=== PATIENT | male | born 1930 | race Caucasian/White ===

== ENCOUNTER 2016-11-22 09:35 | Emergency (ER) | payer MEDICARE ==
--- NOTE | 2016-11-22 10:13 | ERNOTE ---
Medical Problem HPI - General Chief Complaint: General Assessment Time Seen by Provider: 11/22/16 09:53 Source: patient Exam Limitations: no limitations - Immun/Allergies/Home Medications Immunizations: IMMUNIZATION HX Immunizations Up to Date No History of Influenza Vaccine No Hx Pneumococcal Vaccination No Allergies/Adverse Reactions: Allergies codeine [Codeine] Allergy (Verified 11/22/16 09:47) propoxyphene napsylate [From Darvon-N] Allergy (Verified 11/22/16 09:47) Home Medications: HOME MEDICATIONS Beta-Carotene(A) W-C , E/Min [Ocuvite] 1 tab PO DAILY 11/22/16 [Last Taken Unknown] Ciprofloxacin HCl [Cipro] 250 mg PO BID #20 tablet 11/22/16 [Last Taken Unknown] oxyCODONE HCL/ACETAMINOPHEN [Percocet 5-325 mg Tablet] 1 each PO Q4H PRN #20 tablet 11/22/16 [Last Taken Unknown] - History of Present History Narrative: Patient has had progressive joint pain for about three weeks. It started with left shoulder pain, then right. Now both shoulders, elbows, hips and knees hurt to the point where it is hard for him to get around. He denies any injury, no swelling, no other symptoms, no muscle aches. He has been extremely healthy, only had cataract surgery, does not have a PCP which is why he is coming to the ER Date (Duration): 11/04/16 Review of Systems - Review of Systems Constitutional: Absent: recent illness, fever EYE: Absent: vision changes ENT: Absent: nose congestion, sore throat Respiratory: Absent: shortness of breath Cardiology: Absent: chest pain Gastrointestinal/Abdominal: Absent: nausea, vomiting, diarrhea, abdominal pain Genitourinary: Present: no symptoms reported Musculoskeletal: Present: See HPI. Absent: back pain Skin: Absent: rash Neurological: Absent: headache, weakness, numbness Hematologic/Lymphatic: Absent: easy bruising, easy bleeding - Patient's Past Medical History Patient History - Medical: No pertinent hx Patient History - Cardiac/Respiratory: No pertinent hx Patient History - Cancer: No Hx of Cancer Patient History - Surgical Procedures: Cataracts, T & A Patient History - Other: None - Social History Living Situations: home Abuse History: No History of abuse Psych History: No pertinent hx Smoking Status: Never smoker Have you smoked in the past 12 months: No Alcohol Use: none Drug Use: none - Immunizations Immunizations Up to Date: No Hx Pneumococcal Vaccination: No History of Influenza Vaccine: No Physical Exam - Physical Exam General Appearance: Present: wd/wn, alert, no apparent distress Head Exam: Present: normal inspection Neck: Present: normal inspection, supple, full range of motion, other - mild muscle tenderness. Absent: tender posterior midline Respiratory: Present: no respiratory distress, normal breath sounds, no accessory muscle use, chest nontender, lungs clear Cardiovascular/Chest: Present: regular rate, rhythm, no murmur, normal peripheral pulses Gastrointestinal/Abdominal: Present: normal bowel sounds, nontender, nondistended Back Exam: Present: normal inspection, no CVA tenderness, no vertebral tenderness Extremity Exam: Present: normal inspection, no edema, other - no obvious abnormality on inspection of joints, no swellling, no erythema, no tenderness to palpation ,slight tenderness on ROM Neurological Exam: Present: alert, oriented, normal mood/affect, no motor/ sensory deficits Skin Exam: Present: normal color, warm/dry ED Progress - Results and Orders Patient's Lab Results:: I have reviewed the patient's lab results. - Vital Signs Patient's Vital Signs:: I have reviewed the patient's vital signs. 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 UTI (urinary tract infection) Qualifiers: Urinary tract infection type: acute cystitis Hematuria presence: without hematuria Qualified Code(s): N30.00 - Acute cystitis without hematuria Renal failure Qualifiers: Renal failure chronicity: acute Acute renal failure type: unspecified Qualified Code(s): N17.9 - Acute kidney failure, unspecified Disposition: Home self-care Condition: Good Instructions: Urinary Tract Infection, Adult, [id number] Additional Instructions: do not take any more ibuprofen, advil, or aspirin You may EITHER take tyelnol 650mg every four hours OR the prescription pain medication (percocet) you will be called later with a follow up appointment Prescriptions: Ciprofloxacin HCl [Cipro] 250 mg PO BID #20 tablet oxyCODONE HCL/ACETAMINOPHEN [Percocet 5-325 mg Tablet] 1 each PO Q4H PRN #20 tablet PRN Reason: Pain
[2016-11-22 10:25] LABS: Hematocrit 40.8 % (42.0-52.0); Hemoglobin 13.4 gm/dL (13.5-18.0); Mean Cell Volume 88.7 fl (78-100); Mean Corpuscular Hemoglobin 29.1 pg (27-31); Mean Corpuscular Hgb Conc 32.8 g/dl (32-36); Mean Platelet Volume 10.6 fl (6.0-9.5); Platelet Count 193 K/mm3 (150-450); Red Cell Distribution Width 14.5 % (11.5-14.0); White Blood Count 10.6 K/mm3 (4.0-10.5)
[2016-11-22 10:25] LABS: Urine Bilirubin Negative (NEGATIVE); Urine Ketone Negative (NEGATIVE); Urine Nitrite Negative (NEGATIVE); Urine Protein 30 mg/dL (NEGATIVE); Urine Urobilinogen Normal (NORMAL)
[2016-11-22 10:29] LABS: Total Cells Counted 100
[2016-11-22 10:36] LABS: Urine Appearance Clear; Urine Bacteria 1+; Urine Blood 5 /ul (NEGATIVE); Urine Color Yellow; Urine Hyaline Cast 0-5 /LPF; Urine RBC 0-5 /hpf (0-5)
[2016-11-22 10:37] LABS: Albumin * 3.9 gm/dl (3.4-5.0); Anion Gap 16.8 mmol/L (6.8-13.8); BUN/Creatinine Ratio 15.5 (9.0-21.6); Bilirubin, Total 0.7 mg/dL (0.0-1.1); CRP 8.4 mg/dL (0.0-0.9); Ca. Corrected For Albumin 9.3 mg/dL (8.4-10.2); Calcium * 9.5 mg/dL (7.9-10.9); Carbon Dioxide 24.5 mmol/L (24-32.6); Potassium 4.3 mmol/L (3.4-4.6); Total Protein 8.3 gm/dL (6.2-8.2)
[2016-11-22 10:52] LABS: Atypical (Reactive) Lymph 3 % (0-2); Band 6 % (0-2.0); Immature Granulocyte 1 (0-1); Lymphocyte 8 % (20-51); Monocyte 25 % (0-9); Neutrophil 57 % (42-75)
[2016-11-22 10:53] LABS: Platelet Estimate Normal (NORMAL)
[2016-11-22 10:54] LABS: RBC Morphology Normal (NORMAL)
[2016-11-22] MEDS ORDERED: CIPROFLOXACIN HCL 250 MG TABLET PO ONE (11:51)
[2016-11-22] MEDS ORDERED: oxyCODONE HCL/ACETAMINOPHEN 1 TAB TABLET PO ONE (11:51)
[2016-11-22] MEDS ORDERED: oxyCODONE HCL/ACETAMINOPHEN 1 TAB TABLET ONE (11:57)
[2016-11-22] MEDS ORDERED: CIPROFLOXACIN HCL 250 MG TABLET ONE (11:57)
[2016-11-22 12:04] VITALS: BP 153/61
== END 2016-11-22 12:11 | disposition home or self-care (01) ==
LOC: ER 09:35
DX: M02.39 Reiter's disease, multiple sites (principal); N30.00 Acute cystitis without hematuria; N17.9 Acute kidney failure, unspecified

== ENCOUNTER 2016-11-26 12:15 | Observation (INO) | payer MEDICARE ==
[2016-11-26 13:19] LABS: Hematocrit 39.2 % (42.0-52.0); Hemoglobin 13.1 gm/dL (13.5-18.0); Mean Cell Volume 87.7 fl (78-100); Mean Corpuscular Hemoglobin 29.3 pg (27-31); Mean Corpuscular Hgb Conc 33.4 g/dl (32-36); Neutrophil # 3.9 K/mm3 (1.3-6.0); Neutrophil % 37.2 % (42-75.0); Platelet Count 170 K/mm3 (150-450); Red Blood Count 4.47 M/mm3 (4.7-6.0); Red Cell Distribution Width 14.2 % (11.5-14.0); White Blood Count 10.6 K/mm3 (4.0-10.5)
[2016-11-26 13:24] LABS: Total Cells Counted 100
[2016-11-26 13:30] LABS: Albumin * 3.8 gm/dl (3.4-5.0); BUN/Creatinine Ratio 14.1 (9.0-21.6); Bilirubin, Total 0.8 mg/dL (0.0-1.1); CRP 10.3 mg/dL (0.0-0.9); Ca. Corrected For Albumin 9.4 mg/dL (8.4-10.2); Calcium * 9.6 mg/dL (7.9-10.9); Potassium 4.7 mmol/L (3.4-4.6); Total Protein 8.2 gm/dL (6.2-8.2)
[2016-11-26 13:34] LABS: Band 7 % (0-2.0); Immature Granulocyte 1 (0-1); Lymphocyte 11 % (20-51); Monocyte 34 % (0-9); Neutrophil 47 % (42-75)
[2016-11-26 13:35] LABS: Anion Gap 14.9 mmol/L (6.8-13.8); Carbon Dioxide 27.8 mmol/L (24-32.6)
[2016-11-26 13:37] LABS: Urine Bilirubin Negative (NEGATIVE); Urine Ketone Negative (NEGATIVE); Urine Nitrite Negative (NEGATIVE); Urine Protein 15 mg/dL (NEGATIVE); Urine Urobilinogen Normal (NORMAL); Urine pH 5.5 pH (5.0-7.0)
[2016-11-26 13:38] LABS: Platelet Estimate Normal (NORMAL); RBC Morphology Normal (NORMAL)
--- NOTE | 2016-11-26 13:41 | ERNOTE ---
Medical Problem HPI - General Chief Complaint: General Assessment Time Seen by Provider: 11/26/16 12:51 Source: patient, family Exam Limitations: no limitations - Immun/Allergies/Home Medications Immunizations: IMMUNIZATION HX Immunizations Up to Date No History of Influenza Vaccine No Hx Pneumococcal Vaccination No Allergies/Adverse Reactions: Allergies codeine [Codeine] Allergy (Verified 11/22/16 09:47) propoxyphene napsylate [From Darvon-N] Allergy (Verified 11/22/16 09:47) Home Medications: HOME MEDICATIONS Beta-Carotene(A) W-C , E/Min [Ocuvite] 1 tab PO DAILY 11/22/16 [Last Taken Unknown] Ciprofloxacin HCl [Cipro] 250 mg PO BID #20 tablet 11/22/16 [Last Taken Unknown] oxyCODONE HCL/ACETAMINOPHEN [Percocet 5-325 mg Tablet] 1 each PO Q4H PRN #20 tablet 11/22/16 [Last Taken Unknown] - History of Present History Narrative: Patient has been very healthy all his live with few medical visits.Over the last three weeks he has had progressive joint pain in starting in shoulders, elbows, hips and knees. He was seen in the ER four days ago, diagnosed with a UTI and started on antibiotics. He has not improved but gotten worse, the pain is not relieved with the percocet , he has increasing pain weakness, no appetite Review of Systems - Review of Systems Constitutional: Present: recent illness, malaise. Absent: fever Respiratory: Absent: shortness of breath, cough Cardiology: Absent: chest pain Gastrointestinal/Abdominal: Present: eating less. Absent: nausea, vomiting, diarrhea, abdominal pain Genitourinary: Present: frequency Musculoskeletal: Absent: back pain Neurological: Present: weakness - generalized. Absent: headache Hematologic/Lymphatic: Absent: easy bruising - Patient's Past Medical History Patient History - Medical: No pertinent hx Patient History - Cardiac/Respiratory: No pertinent hx Patient History - Cancer: No Hx of Cancer Patient History - Surgical Procedures: Cataracts, T & A Patient History - Other: None - Social History Living Situations: home Abuse History: No History of abuse Psych History: No pertinent hx Smoking Status: Never smoker Alcohol Use: none Drug Use: none - Immunizations Immunizations Up to Date: No Hx Pneumococcal Vaccination: No History of Influenza Vaccine: No Physical Exam - Physical Exam General Appearance: Present: wd/wn, alert, no apparent distress Head Exam: Present: normal inspection Ears, Nose, Throat: Present: normal pharynx Respiratory: Present: no respiratory distress, no accessory muscle use, lungs clear, decreased breath sounds Cardiovascular/Chest: Present: regular rate, rhythm, no murmur Gastrointestinal/Abdominal: Present: normal bowel sounds, nontender, nondistended Extremity Exam: Present: normal inspection, no edema, other - no obvious joint swelling, erythema shaver tenderness Neurological Exam: Present: alert, oriented, normal mood/affect Skin Exam: Present: normal color, warm/dry ED Progress - Results and Orders Patient's Lab Results:: I have reviewed the patient's lab results. - Vital Signs Patient's Vital Signs:: I have reviewed the patient's vital signs. Vital Signs: Vital Signs 11/26/16 11/26/16 12:30 12:58 Temperature 37.4 C Pulse Rate 75 83 Respiratory 17 16 Rate Blood Pressure 129/63 O2 Sat by Pulse 97 97 Oximetry - EKG EKG: nonspecific ST T wave changes - J point elevation - CT/Ultrasound CT/Ultrasound Narrative: CT head: age related changes, no acute - Progress/Reassessment Chief Complaint: General Assessment Progress Note-Subjective: 11/26/16 13:20 patient became unresponsive getting out of the bathroom, possible seizure activity initially patient was unresponsive, pale with poor respiration, clenched jaw, quickly became responsive again, breathing spontaneously alert with in a couple of minutes, denies any new symptoms 11/26/16 14:18 discussed peripheral smear with Dr Cardenas looks more like reactive process 11/26/16 14:55 discussed results with patient and family 11/26/16 15:[address] Caldwell, okay to admit for observation for syncope and uncontrolled pain add EMILY and blood culture, okay to start rocephin Departure - Departure Clinical Impression: Uncontrolled pain Syncope Qualifiers: Syncope type: unspecified Qualified Code(s): R55 - Syncope and collapse Disposition: [facility] Condition: Fair
[2016-11-26 13:48] LABS: Urine Appearance Slightly Cloudy; Urine Bacteria 1+; Urine Blood 5 /ul (NEGATIVE); Urine Coarse Granular Cast TRACE /LPF; Urine Color Yellow; Urine Hyaline Cast 0-5 /LPF
--- NOTE | 2016-11-26 14:49 | PATHPSR ---
PHYSICIAN: Linette Hager MD LAB#: [id number] SPECIMEN DATE: 11/26/2016 CLINICAL INFORMATION: The patient is an 86-year-old man seen in the emergency room 4 days previously with joint pain for 3 weeks which was felt to be reactive due to a urinary tract infection which was treated with antibiotics. The patient presents to the ER today as he has not responded to treatment and urinary tract cultures were negative The current CBC in comparison to this previous CBC shows a left shift in granulocytic series, increased monocytes. PSA is elevated to 11.93 mg/ml. A peripheral smear evaluation was ordered to evaluate the left shift and monocytosis. CBC: WBC 10.6 K/mm3, hemoglobin 13.1 gm/dl, hematocrit 39.2 %, MCV is 87.7 fl, MCH is 29.3 pg, MCHC is 33.4 g/dl, Platelet count 170,000. Manual differential: Neutrophils 47 %, bands 7 %, lymphocytes 11 %, monocytes 34 %, eosinophils 0 %, basophils 0 %, immature granulocytes 1%. RED BLOOD CELLS: Mild normocytic, normochromic anemia PLATELETS: No abnormalities WHITE BLOOD CELLS: Relative and absolute monocytosis with left shift in granulocytic series DIAGNOSIS: PERIPHERAL BLOOD SMEAR, REVIEW BY PATHOLOGIST: -ABNORMAL LEUKOCYTE COUNTS WITH LEFT SHIFT IN GRANULOCYTIC SERIES AND MONOCYTOSIS, SEE COMMENT COMMENT: The findings suggest a reactive process to inflammatory reactive changes in the patient. No definitive evidence of primary chronic or acute hematological malignancy is identified on our examination. However follow-up counts are suggested. If the monocytosis and a left shift in the granulocytic series does not resolve, further evaluation including hematological consultation and bone marrow evaluation is suggested. The findings are discussed with Dr. Hager on 11/26/2016.
[2016-11-26] MEDS ORDERED: HYDROmorphone HCL 1 MG/ML DISP.SYRIN IV ONE (15:15)
[2016-11-26] MEDS ORDERED: HYDROmorphone HCL 1 MG/ML DISP.SYRIN ONE (15:20)
[2016-11-26] MEDS ORDERED: ACETAMINOPHEN 500 MG TABLET PO PRN (15:28)
[2016-11-26] MEDS ORDERED: HYDROmorphone HCL 1 MG/ML DISP.SYRIN IV PRN (15:28)
[2016-11-26] MEDS ORDERED: ONDANSETRON HCL/PF 2 MG/ML VIAL IV PRN (15:28)
--- NOTE | 2016-11-26 17:36 | HP ---
Chief Complaint - Chief Complaint Date of Service: 11/26/16 Time of Service: 17:17 Chief Complaint: polyarticular joint pains/syncope. History of Present Illness: Braden aCmpbell, is an 86-year-old white male, with no significant previous medical history who was admitted on 11/26/2016 because of syncopal episode and polyarticular pains. The patient was relatively well until 5 days prior to admission when he was seen in our emergency room because of polyarticular pain and a urinary tract infection. At that time his ESR was 88 and his CRP was elevated at 8.4. He was started on Cipro and sent home with Percocet . His joint pains did not have any relief with his Percocet and he eventually came back today, In the emergency room, he was found to have again a urinary tract infection and an elevated PSA of 11.97, a creatinine 1.4 , potassium of 4.7, a C-reactive protein of 10.3, a WBC of 10.6 with bands of 7% . His monocytes were also elevated at 32.5. A peripheral smear was done and pathology feels that it is more of inflammatory reactive response rather than malignancy. His CK and RF were normal. When the patient went in the bathroom he had a syncopal episode. The patient was admitted for observation and further evaluation. He denies any fever or chills denies any nausea, vomiting, diarrhea , constipation, denies any dysuria put polyuria, denies any chest pain, palpitation and denies any abdominal pain. He admits to having had neck pain 2 weeks ago which then started going down to his shoulder elbows and hips and knees. He denies any sore throat, any recent trauma. - Patient's Past Medical History Patient History - Medical: No pertinent hx Patient History - Cardiac/Respiratory: No pertinent hx Patient History - Cancer: No Hx of Cancer Patient History - Surgical Procedures: Cataracts, T & A Patient History - Other: None - Family History Mother Family History - Medical: History Unknown Family History - Cardiac/Respiratory: History Unknown Family History - Cancer: Breast Father Family History - Medical: , History Unknown Family History - Cardiac/Respiratory: Cardiac Arrest, CVA/Stroke Family History - Cancer: History Unknown - Social History Living Situations: home Abuse History: No History of abuse Psych History: No pertinent hx Smoking Status: Never smoker Have you smoked in the past 12 months: No Do you dip or chew tobacco: No Alcohol Use: none Drug Use: none - Immunizations Immunizations Up to Date: No Hx Pneumococcal Vaccination: No History of Influenza Vaccine: No Review Of Systems (GEN) - Review of Systems Generalized/Overall Review: Absent: Chills, Fever EENTM: Present: No Symptoms Reported Respiratory: Absent: Cough, Shortness of Breath Cardiac: Absent: Chest Pain, Edema, Palpitations Abdominal: Absent: Nausea, Vomiting, Abdominal Pain Genitourinary: Absent: Burning, Urgency, Frequency Musculoskeletal: Present: Joint Pain, Muscle Pain Neurological: Absent: Numbness, Parasthesia Skin: Absent: Rash Immunizations: IMMUNIZATION HX Immunizations Up to Date No History of Influenza Vaccine No Hx Pneumococcal Vaccination No Allergies/Adverse Reactions: Allergies Allergy/AdvReac Type Severity Reaction Status Date / Time codeine [Codeine] Allergy Anaphylaxis Verified 11/26/16 15:59 Home Medications: HOME MEDICATIONS Beta-Carotene(A) W-C , E/Min [Ocuvite] 1 tab PO DAILY 11/22/16 [Last Taken Unknown] Ciprofloxacin HCl [Cipro] 250 mg PO BID #20 tablet 11/22/16 [Last Taken 03:00] oxyCODONE HCL/ACETAMINOPHEN [Percocet 5-325 mg Tablet] 1 each PO Q4H PRN #20 tablet 11/22/16 [Last Taken 11/26/16 03:00] [place]-3/Dha/Epa/Fish Oil [Fish Oil 1,000 mg Softgel] 1 each PO BID 11/26/16 [ Last Taken Unknown] Exam - Exam Vital Signs: Vital Signs - Last Taken Temp 37.4 C 11/26/16 15:34 Pulse 75 11/26/16 15:34 Resp 16 11/26/16 15:34 BP 132/58 11/26/16 15:34 Pulse Ox 98 11/26/16 15:34 Constitutional: Present: Alert, Oriented x3, Cooperative, Elderly ENT Exam: Present: hearing grossly normal Eye Exam: bilateral eye: normal inspection, PERRL, EOMI Neck: Present: supple Back Exam: Present: other - allof his back hurts and slightly tender especially his neck Respiratory: Present: normal breath sounds, No rales, No wheezing Cardiovascular/Chest: Present: regular rate, rhythm, no JVD, no murmur Abdomen: Present: Normal bowel sounds, soft, nontender, nondistended Extremity: Present: no pedal edema, no calf tenderness, other - no erythema/ warmness/no siginificant swelling of joints. Diagnostic Studies: Laboratory Results WBC 10.6 K/mm3 (4.0-10.5) H 11/26/16 13:10 RBC 4.47 M/mm3 (4.7-6.0) L 11/26/16 13:10 Hgb 13.1 gm/dL (13.5-18.0) L 11/26/16 13:10 Hct 39.2 % (42.0-52.0) L 11/26/16 13:10 MCV 87.7 fl (78-100) 11/26/16 13:10 MCH 29.3 pg (27-31) 11/26/16 13:10 MCHC 33.4 g/dl (32-36) 11/26/16 13:10 RDW 14.2 % (11.5-14.0) H 11/26/16 13:10 Plt Count 170 K/mm3 (150-450) 11/26/16 13:10 MPV 10.0 fl (6.0-9.5) H 11/26/16 13:10 Immature Gran % (Auto) 3.20 % (0.001-0.429) H 11/26/16 13:10 Immature Gran # (Auto) 0.34 K/mm3 (0.000-0.0310) H 11/26/16 13:10 Neutrophils % 37.2 % (42-75.0) L 11/26/16 13:10 Neutrophils % (Manual) 47 % (42-75) 11/26/16 13:10 Band Neuts % (Manual) 7 % (0-2.0) H 11/26/16 13:10 Lymphocytes % 26.4 % (20-51) 11/26/16 13:10 Lymphocytes % (Manual) 11 % (20-51) L 11/26/16 13:10 Monocytes % 32.5 % (0.0-9) H 11/26/16 13:10 Monocytes % (Manual) 34 % (0-9) H 11/26/16 13:10 Eosinophils % 0.2 % (0.0-3.0) 11/26/16 13:10 Basophils % 0.5 % (0.0-1.0) 11/26/16 13:10 Nucleated RBC % 0.0 k/mm3 (0-1) 11/26/16 13:10 Immature Granulocytes 1 (0-1) 11/26/16 13:10 Neutrophils # 3.9 K/mm3 (1.3-6.0) 11/26/16 13:10 Neutrophils # (Manual) 5.0 K/mm3 (1.3-6.0) 11/26/16 13:10 Lymphocytes # 2.8 k/mm3 (1.5-3.5) 11/26/16 13:10 Lymphocytes # (Manual) 1.2 k/mm3 (1.5-3.5) L 11/26/16 13:10 Monocytes # 3.4 k/mm3 (0.0-1.0) H 11/26/16 13:10 Monocytes # (Manual) 3.6 k/mm3 (0.0-1.0) H 11/26/16 13:10 Eosinophils # 0.0 k/mm3 (0.0-0.7) 11/26/16 13:10 Absolute Basophils 0.1 k/mm3 (0.0-0.1) 11/26/16 13:10 Platelet Estimate Normal (NORMAL) 11/26/16 13:10 RBC Morphology Normal (NORMAL) 11/26/16 13:10 Peripheral Blood Smear Smear sent to path. 11/26/16 13:39 ESR 45 mm/hr (0-10) H 11/26/16 13:10 Absolute Retic 0.0504 11/26/16 13:39 Percent Retic 1.1 % (0.4-1.8) 11/26/16 13:39 Immature Retic Fraction 14.1 % (2.3-13.4) H 11/26/16 13:39 Retic Hgb Content 13.0 pg (29-35) L 11/26/16 13:39 Sodium 135 mmol/L (132-142) 11/26/16 13:10 Plasma Sodium 136 mmol/L (130-142) 11/26/16 13:10 Potassium 4.7 mmol/L (3.4-4.6) H 11/26/16 13:10 Chloride 97 mmol/L (97-106) 11/26/16 13:10 Carbon Dioxide 27.8 mmol/L (24-32.6) 11/26/16 13:10 Anion Gap 14.9 mmol/L (6.8-13.8) H 11/26/16 13:10 BUN 20 mg/dL (6-23) 11/26/16 13:10 Creatinine 1.42 mg/dL (0.4-1.4) H D 11/26/16 13:10 Est GFR (Non-Af Amer) 50 mL/min (60-130) L D 11/26/16 13:10 BUN/Creatinine Ratio 14.1 (9.0-21.6) 11/26/16 13:10 Random Glucose 148 mg/dL (70-110) H 11/26/16 13:10 Calcium 9.6 mg/dL (7.9-10.9) 11/26/16 13:10 Calcium Adj for Albumin 9.4 mg/dL (8.4-10.2) 11/26/16 13:10 Total Bilirubin 0.8 mg/dL (0.0-1.1) 11/26/16 13:10 AST 23 U/L (0-48) 11/26/16 13:10 ALT 18 U/L (19-67) L 11/26/16 13:10 Alkaline Phosphatase 77 U/L (50-170) 11/26/16 13:10 Creatine Kinase 71 U/L (0-259) 11/26/16 13:10 Troponin I Less than 0.017 ng/ml (0.00-0.10) 11/26/16 13:10 C-Reactive Prot, Quant 10.3 mg/dL (0.0-0.9) H 11/26/16 13:10 Total Protein 8.2 gm/dL (6.2-8.2) 11/26/16 13:10 Albumin 3.8 gm/dl (3.4-5.0) 11/26/16 13:10 Prostate Specific Ag 11.93 ng/mL (0.00-4.00) H 11/26/16 13:10 Urine Color Yellow 11/26/16 13:09 Urine Appearance Slightly cloudy 11/26/16 13:09 Urine pH 5.5 pH (5.0-7.0) 11/26/16 13:09 Ur Specific [place] 1.020 SP.GR. (1.005-1.030) 11/26/16 13:09 Urine Protein 15 mg/dL (NEGATIVE) H 11/26/16 13:09 Urine Glucose (UA) Negative mg/dL (NEGATIVE) 11/26/16 13:09 Urine Ketones Negative mg/dL (NEGATIVE) 11/26/16 13:09 Urine Blood 5 /ul (NEGATIVE) H 11/26/16 13:09 Urine Nitrate Negative (NEGATIVE) 11/26/16 13:09 Urine Bilirubin Negative mg/dl (NEGATIVE) 11/26/16 13:09 Prot Sulfosalicylic Acd 1+ mg/dL (0) 11/26/16 13:09 Urine Urobilinogen Normal EU/dl (NORMAL) 11/26/16 13:09 Ur Leukocyte Esterase 25 /ul (NEGATIVE) H 11/26/16 13:09 Urine RBC 5-10 /hpf (0-5) H 11/26/16 13:09 Urine WBC 5-10 /hpf (0-5) H 11/26/16 13:09 Ur Epithelial Cells 0-5 /hpf (0-5) 11/26/16 13:09 Urine Bacteria 1+ (NONE) H 11/26/16 13:09 Hyaline Casts 0-5 /LPF (NONE) H 11/26/16 13:09 Coarse Granular Casts Trace /LPF (NONE) 11/26/16 13:09 Urine Culture Comments Culture to follow 11/26/16 13:09 Assessment/Plan - Assessment/Plan (1) Syncope Assessment: likely vasovagal. continue with telemetry and IVF. Problem: Acute Qualifiers: Syncope type: unspecified Qualified Code(s): R55 - Syncope and collapse (2) Uncontrolled pain Assessment: polyarticular and some myalgia. will add EMILY, ANCA, aldolase. Still could be PMR. If still with pain will in a.m. , will do trial of Oral Predisone . Problem: Acute (3) Reactive arthritis following genitourinary infection Assessment: will cotinue with IV Rocephin. Problem: Acute (4) Renal failure Assessment: continue with IVF Problem: Acute Qualifiers: Renal failure chronicity: acute Acute renal failure type: unspecified Qualified Code(s): N17.9 - Acute kidney failure, unspecified (5) UTI (urinary tract infection) Problem: Acute Qualifiers: Urinary tract infection type: acute cystitis Hematuria presence: without hematuria Qualified Code(s): N30.00 - Acute cystitis without hematuria
[2016-11-26] MEDS: NORMAL SALINE 1,000 ML IV PRN (19:45)
[2016-11-27] MEDS: NORMAL SALINE 1,000 ML IV PRN ×2 (04:03→16:08)
[2016-11-27] MEDS: BETA-CAROTENE(A) W-C , E/MIN 1 TAB TABLET PO SCH (08:20)
--- NOTE | 2016-11-27 08:39 | PN ---
Progess Note - Interim Narrative: 11/27/16 08:37 Still complaining of pain in his major joints- neck, shoulder, elbows, knees, ankle joints. BC is pending. Positive Rapid Strep test- group A. Positve mild murmur apex. will do Echo.continnue with IV rocephin.
[2016-11-27 08:53] LABS: Hematocrit 36.1 % (42.0-52.0); Mean Cell Volume 88.9 fl (78-100); Mean Corpuscular Hemoglobin 29.6 pg (27-31); Mean Corpuscular Hgb Conc 33.2 g/dl (32-36); Mean Platelet Volume 10.1 fl (6.0-9.5); Platelet Count 148 K/mm3 (150-450); Red Blood Count 4.06 M/mm3 (4.7-6.0); Red Cell Distribution Width 14.3 % (11.5-14.0); White Blood Count 10.9 K/mm3 (4.0-10.5)
[2016-11-27 09:00] LABS: Anion Gap 11.8 mmol/L (6.8-13.8); BUN/Creatinine Ratio 15.8 (9.0-21.6); Calcium * 8.8 mg/dL (7.9-10.9); Carbon Dioxide 29.8 mmol/L (24-32.6); Estimated Creat Clear 43.4; Potassium 4.6 mmol/L (3.4-4.6)
[2016-11-27 09:01] LABS: Total Cells Counted 100
[2016-11-27 09:04] LABS: Band 3 % (0-2.0); Hypersegmented Polys Trace; Immature Granulocyte 4 (0-1); Lymphocyte 10 % (20-51); Monocyte 22 % (0-9); Neutrophil 61 % (42-75); Neutrophil # 6.6 K/mm3 (1.3-6.0); Platelet Estimate Normal (NORMAL)
[2016-11-27] MEDS: oxyCODONE HCL/ACETAMINOPHEN 1 TAB TABLET PO PRN ×2 (12:06→16:20)
--- NOTE | 2016-11-27 16:56 | PN ---
Subjective - Date and Time Seen Date: 11/27/16 Time: 16:47 Subjective Narrative: Still complaining of pain in his major joints- neck, shoulder, elbows, knees, ankle joints. Positive Rapid Strep test- group A. Positive mild murmur apex. Objective - Review of Systems Generalized/Overall Review: Reports: Weakness - generalized. Denies: Chills, Fever EENTM: Reports: No Symptoms Reported Respiratory: Reports: Other - mild sore throat. Denies: Cough, Shortness of Breath, Orthopnea Cardiac: Denies: Chest Pain, Edema, Palpitations Abdominal: Reports: Melena. Denies: Nausea, Vomiting Genitourinary Symptoms: Denies: Urgency, Frequency Musculoskeletal Complaints: Reports: Joint Pain - Vitals Vitals: Last Vital Signs Temp 37.6 C H 11/27/16 15:02 Pulse 74 11/27/16 15:02 Resp 18 11/27/16 15:02 BP 122/53 11/27/16 15:02 Pulse Ox 96 11/27/16 15:02 - Abnormal Lab Findings Abnormal Lab Findings: Abnormal Lab Results 11/26/16 11/27/16 11/27/16 Range/Units 22:05 08:47 08:47 WBC 10.9 H (4.0-10.5) K/mm3 RBC 4.06 L (4.7-6.0) M/mm3 Hgb 12.0 L (13.5-18.0) gm/dL Hct 36.1 L (42.0-52.0) % RDW 14.3 H (11.5-14.0) % Plt Count 148 L (150-450) K/mm3 MPV 10.1 H (6.0-9.5) fl Band Neuts % (Manual) 3 H (0-2.0) % Lymphocytes % (Manual) 10 L (20-51) % Monocytes % (Manual) 22 H (0-9) % Immature Granulocytes 4 H (0-1) Neutrophils # (Manual) 6.6 H (1.3-6.0) K/mm3 Lymphocytes # (Manual) 1.1 L (1.5-3.5) k/mm3 Monocytes # (Manual) 2.4 H (0.0-1.0) k/mm3 Est GFR (Non-Af Amer) 52 L (60-130) mL/min Random Glucose 155 H (70-110) mg/dL Group A Strep Rapid Positive H (NEGATIVE) - Exam Constitutional: Present: Alert, Oriented x3, Cooperative ENT Exam: Present: hearing grossly normal Neck: Present: supple Breasts: Present: Exam deferred Respiratory: Present: normal breath sounds, No rales, No wheezing Cardiovascular/Chest: Present: regular rate, rhythm, no JVD, systolic murmur Abdomen: Present: Normal bowel sounds, soft, nontender, nondistended Extremity: Present: no pedal edema, no calf tenderness, other - positive multiple joint tenderness Assessment/Plan - Problems/Diagnosis (1) Syncope Problem: Acute Qualifiers: Syncope type: unspecified Qualified Code(s): R55 - Syncope and collapse Narrative: likely vasovagal (2) Uncontrolled pain Problem: Acute Narrative: still with joint pains and some muscle pains especially of his proximal upper extremity muscle. r/o reactive arthralgia/arthritis from Strep but this could be still be PMR. Lyme is unlikely as it mostly mono or oligoartralgia/arthritis , no h/o tick bite. Might still try high dose prednisone after adequate coverage for infection. will check Echo. (3) Reactive arthritis following genitourinary infection Problem: Acute Narrative: or poststrep ( positive rapid strep test Grp A) (4) Renal failure Problem: Acute Qualifiers: Renal failure chronicity: acute Acute renal failure type: unspecified Qualified Code(s): N17.9 - Acute kidney failure, unspecified Narrative: improved. (5) UTI (urinary tract infection) Problem: Acute Qualifiers: Urinary tract infection type: acute cystitis Hematuria presence: without hematuria Qualified Code(s): N30.00 - Acute cystitis without hematuria Narrative: no growth on UCS.
[2016-11-28] MEDS: NORMAL SALINE 1,000 ML IV PRN (00:40)
[2016-11-28] MEDS: oxyCODONE HCL/ACETAMINOPHEN 1 TAB TABLET PO PRN ×3 (03:02→14:52)
[2016-11-28] MEDS: BETA-CAROTENE(A) W-C , E/MIN 1 TAB TABLET PO SCH (08:49)
[2016-11-28] MEDS ORDERED: predniSONE 20 MG TABLET PO ONE (08:50)
--- NOTE | 2016-11-28 08:53 | PN ---
Progess Note - Interim Narrative: 11/28/16 08:52 Still with pains. Will try Oral prednisone today and see if he gets a dramatic response. He has been covered with antibiotics
[2016-11-28 15:45] VITALS: BP 136/55
[2016-11-28 16:47] LABS: P-ANCA Titer DNR titer (<1:20)
--- NOTE | 2016-11-28 16:50 | DS ---
(1) PMR (polymyalgia rheumatica) Diagnosis(s): will discharge patient on 15 mg PO prednisone q daily. Problem: Acute (2) Syncope Diagnosis(s): likely vasovagal. Problem: Acute Qualifiers: Syncope type: unspecified Qualified Code(s): R55 - Syncope and collapse (3) Uncontrolled pain Diagnosis(s): almost resolved with prednisone, likely due to PMR Problem: Acute (4) Renal failure Problem: Resolved Qualifiers: Renal failure chronicity: acute Acute renal failure type: unspecified Qualified Code(s): N17.9 - Acute kidney failure, unspecified (5) UTI (urinary tract infection) Diagnosis(s): NG on UCS. Problem: Acute Qualifiers: Urinary tract infection type: acute cystitis Hematuria presence: without hematuria Qualified Code(s): N30.00 - Acute cystitis without hematuria Description of Stay: Braden Campbell, is an 86-year-old white male, with no significant previous medical history who was admitted on 11/26/2016 because of syncopal episode and polyarticular pains. The patient was relatively well until 5 days prior to admission when he was seen in our emergency room because of polyarticular pain and a urinary tract infection. At that time his ESR was 88 and his CRP was elevated at 8.4. He was started on Cipro and sent home with Percocet . His joint pains did not have any relief with his Percocet and he eventually came back today, In the emergency room, he was found to have again a urinary tract infection and an elevated PSA of 11.97, a creatinine 1.4 , potassium of 4.7, a C-reactive protein of 10.3, a WBC of 10.6 with bands of 7% . His monocytes were also elevated at 32.5. A peripheral smear was done and pathology feels that it is more of inflammatory reactive response rather than malignancy. His CK and RF were normal. When the patient went in the bathroom he had a syncopal episode. The patient was admitted for observation and further evaluation. He denied any fever or chills denied any nausea, vomiting, diarrhea , constipation, denied any dysuria /polyuria, denied any chest pain, palpitation and denied any abdominal pain. He admitted to having had neck pain 2 weeks [employer] which then started going down to his shoulder elbows and hips and knees. He denied any sore throat, any recent trauma. His UCS came back NG. His rapid strep test was positive for Group A strep. He had 3 days of IV Rocephin. His polyarticular pains did not get better until a trial of Prednisone was started . He had one episode of asymptomatic NSVT (5 beats). Will send him on a 48 Holter monitor, Cefdinir and Prednisone for presumed PMR. His EMILY/ANCA are still pending. RF was negative. Procedures Performed: none Discharge Disposition: Home self care Disposition: Home self-care Condition: Fair Discharge Activity: Activity as tolerated Discharge Diet: General/regular food Referrals: Kaur Caldwell MD [Staff Physician] - Additional Patient Instructions (free text): Follow up with Dr. Caldwell in 2 weeks. Do a 48 hour Holter Monitor- NSVT. Prescriptions (Any new or edited meds): Acetaminophen [Tylenol] 650 mg PO Q4H PRN #30 tablet PRN Reason: Mild Pain Cefdinir [Omnicef] 300 mg PO Q12H #14 cap predniSONE [Prednisone] 15 mg PO DAILY #90 tablet Complete Home Medications List: Complete Home Medication List: Beta-Carotene(A) W-C , E/Min [Ocuvite] 1 tab PO DAILY 11/22/16 [place]-3/Dha/Epa/Fish Oil [Fish Oil 1,000 mg Softgel] 1 each PO BID 11/26/16 Acetaminophen [Tylenol] 650 mg PO Q4H PRN #30 tablet 11/28/16 Cefdinir [Omnicef] 300 mg PO Q12H #14 cap 11/28/16 predniSONE [Prednisone] 15 mg PO DAILY #90 tablet 11/28/16
--- NOTE | 2016-11-30 13:58 | ECHO ---
This report is available in the EMR
== END 2016-11-28 17:50 | disposition home or self-care (01) ==
LOC: ER 12:15 → MS 15:13
PROVIDERS: ADMIT Internal Medicine; ATTEND Internal Medicine
DX: M35.3 Polymyalgia rheumatica (principal); R55 Syncope and collapse; N17.9 Acute kidney failure, unspecified; N30.00 Acute cystitis without hematuria; M02.39 Reiter's disease, multiple sites
CPT/HCPCS: 36415; 70450; 72050; 80048; 80053; 81001; 82085; 82550; 84153; 84484; 85007; 85025; 85045; 85652; 86021; 86038; 86140; 87040; 87086; 87430; 93005; 93306; 96365; 96366; 96374; 96375; 97116; 97161; 99284; G0378; G8978; G8979; G8980